=== PATIENT | male | born 1945 | race Caucasian/White ===

== ENCOUNTER 2019-09-20 17:33 | Inpatient (IN) ==
[2019-09-21] MEDS ORDERED: Piperacillin/Tazobactam 3.375 GM VIAL IVPB SCH
[2019-09-21] MEDS: Piperacillin/Tazobactam 3.375 GM in 0.9 % Sodium Chloride Mini Bag 100 ML IVPB SCH ×3 (00:04→15:48)
[2019-09-21 06:32] LABS: Basophils % 0.2 %; Eosinophils % 0.8 %; Hematocrit 31.6 % (37.5-50.1); Hemoglobin 9.6 g/dL (12.9-16.9); Immature Granulocytes % 1.9 % (0-4); Lymphocytes # 0.9 K/mcL (0.6-4.6); Lymphocytes % 18.8 %; Mean Corpuscular HGB Conc 30.4 g/dL (31.6-35.5); Mean Corpuscular Hemoglobin 21.2 pg (28.0-33.3); Mean Corpuscular Volume 69.9 fL (83.0-100.0); Mean Platelet Volume 8.1 fL (9.4-12.4); Monocytes # 0.5 K/mcL (0.0-1.3); Monocytes % 10.2 %; Neutrophils # 3.3 K/mcL (1.6-8.9); Platelet Count 442 K/mcL (140-400); Red Blood Count 4.52 M/mcL (4.19-5.50); Segmented Neutrophils % 68.1 %; White Blood Count 4.8 K/mcL (4.3-11.1)
[2019-09-21 06:46] LABS: INR 1.1; Prothrombin Time 12.7 Seconds (9.4-12.1)
[2019-09-21 06:49] LABS: Activated Partial Thrombo Time 27.8 Seconds (26.0-36.0)
[2019-09-21 06:59] LABS: BUN/Creatinine Ratio 26 (6-26); Blood Urea Nitrogen 16 mg/dL (8-23); Calcium 7.9 mg/dL (8.6-10.3); Carbon Dioxide 28 mEq/L (23-29); Chloride 102 mEq/L (98-107); Glucose 99 mg/dL (70-105); Osmolality,Calculated 279 (280-300); Potassium 4.7 mEq/L (3.5-5.1); Sodium 134 mEq/L (136-145); eGFR For African Americans > 60 (> 60); eGFR For Non-African Americans > 60 (> 60)
[2019-09-21 07:50] LABS: Anisocytosis 1+ (Not Present); Hypochromasia Present (Not Present); Microcytosis Present (Not Present)
[2019-09-22] MEDS: Piperacillin/Tazobactam 3.375 GM in 0.9 % Sodium Chloride Mini Bag 100 ML IVPB SCH ×3 (00:59→16:46)
[2019-09-23] MEDS: Piperacillin/Tazobactam 3.375 GM in 0.9 % Sodium Chloride Mini Bag 100 ML IVPB SCH ×3 (00:13→17:29)
[2019-09-23 10:58] LABS: Hematocrit 32.4 % (37.5-50.1); Hemoglobin 9.7 g/dL (12.9-16.9); Mean Corpuscular HGB Conc 29.9 g/dL (31.6-35.5); Mean Corpuscular Volume 70.3 fL (83.0-100.0); Mean Platelet Volume 7.5 fL (9.4-12.4); Platelet Count 456 K/mcL (140-400); Red Blood Count 4.61 M/mcL (4.19-5.50); White Blood Count 7.7 K/mcL (4.3-11.1)
[2019-09-23 11:12] LABS: BUN/Creatinine Ratio 21 (6-26); Blood Urea Nitrogen 17 mg/dL (8-23); Calcium 7.6 mg/dL (8.6-10.3); Carbon Dioxide 23 mEq/L (23-29); Chloride 102 mEq/L (98-107); Glucose 125 mg/dL (70-105); Osmolality,Calculated 277 (280-300); Potassium 3.6 mEq/L (3.5-5.1); Sodium 132 mEq/L (136-145); eGFR For African Americans > 60 (> 60); eGFR For Non-African Americans > 60 (> 60)
[2019-09-24] MEDS: Piperacillin/Tazobactam 3.375 GM in 0.9 % Sodium Chloride Mini Bag 100 ML IVPB SCH ×2 (00:35→07:51)
[2019-09-24] MEDS: Ondansetron ODT 4 MG TAB.RAPDIS SL PRN (16:55)
[2019-09-25] MEDS: Ondansetron ODT 4 MG TAB.RAPDIS SL PRN (07:02)
[2019-09-25] MEDS ORDERED: *HR* Promethazine 25 MG/ML VIAL IVP ONE (13:24)
[2019-09-26] MEDS: Ondansetron ODT 4 MG TAB.RAPDIS SL PRN (12:04)
[2019-09-27] MEDS: Ondansetron ODT 4 MG TAB.RAPDIS SL PRN (11:56)
[2019-09-27 14:33] LABS: BUN/Creatinine Ratio 26 (6-26); Blood Urea Nitrogen 22 mg/dL (8-23); Calcium 8.4 mg/dL (8.6-10.3); Carbon Dioxide 26 mEq/L (23-29); Chloride 102 mEq/L (98-107); Glucose 120 mg/dL (70-105); Osmolality,Calculated 283 (280-300); Potassium 3.7 mEq/L (3.5-5.1); Sodium 134 mEq/L (136-145); eGFR For African Americans > 60 (> 60); eGFR For Non-African Americans > 60 (> 60)
[2019-09-28] MEDS: Ondansetron ODT 4 MG TAB.RAPDIS SL PRN (07:31)
[2019-09-29 06:02] LABS: Hematocrit 32.1 % (37.5-50.1); Hemoglobin 9.7 g/dL (12.9-16.9); Mean Corpuscular HGB Conc 30.2 g/dL (31.6-35.5); Mean Corpuscular Hemoglobin 21.5 pg (28.0-33.3); Mean Corpuscular Volume 71.2 fL (83.0-100.0); Mean Platelet Volume 8.8 fL (9.4-12.4); Platelet Count 364 K/mcL (140-400); Red Blood Count 4.51 M/mcL (4.19-5.50); Red Cell Distribution Width 20.4 % (11.5-14.5); White Blood Count 5.1 K/mcL (4.3-11.1)
[2019-09-29 06:35] LABS: BUN/Creatinine Ratio 26 (6-26); Blood Urea Nitrogen 21 mg/dL (8-23); Calcium 8.3 mg/dL (8.6-10.3); Carbon Dioxide 26 mEq/L (23-29); Chloride 101 mEq/L (98-107); Glucose 82 mg/dL (70-105); Osmolality,Calculated 278 (280-300); Sodium 133 mEq/L (136-145); eGFR For African Americans > 60 (> 60); eGFR For Non-African Americans > 60 (> 60)
[2019-09-29 06:57] VITALS: BP 129/67
[2019-09-29] MEDS: Ondansetron ODT 4 MG TAB.RAPDIS SL PRN (07:58)
== END 2019-09-29 11:00 | disposition home or self-care (01) | DRG 945 ==
LOC: INPPIK 18:28
PROVIDERS: ADMIT Family Medicine; ATTEND Family Medicine